=== PATIENT | male | born 1960 | race Asian ===

== ENCOUNTER 2021-01-30 11:01 | Emergency (ER) | payer BC ==
[~2021-01-30] VITALS: Ht 177.8 cm; Wt 81.6 kg
[2021-01-30 11:01] VITALS: BP 130/70
--- NOTE | 2021-01-30 11:05 | NUR ---
BIBRA 78 C/O PALPITATIONS AND NEAR SYNCOPAL EPISODE AFTER TAKING NTG. ALERT AND ORIENTED X4. DENIES PAIN. IN ROOM AIR AND DENIES SOB. RESPIRATION REGULAR AND UNLABORED. WILL CONTINUE TO MONITOR THE PATIENT.
--- NOTE | 2021-01-30 11:10 | NUR ---
AT BEDSIDE FOR EVAL.
--- NOTE | 2021-01-30 11:24 | NUR ---
Patient does not wish to proceed with medical care recommended by Dr. Vallejo. Patient given information related to possible complications, up to and including , which could occur as a result of leaving the hospital at this time. Patient verbalizes understanding of risks involved due to leaving against medical advice. Patient has signed AMA form.
== END 2021-01-30 11:30 | disposition left against medical advice (07) ==
LOC: ER 11:03
DX: R55 Syncope and collapse (principal); R00.2 Palpitations; R42 Dizziness and giddiness; I10 Essential (primary) hypertension; F17.200 Nicotine dependence, unspecified, uncomplicated